=== PATIENT | female | born 1990 | race Caucasian/White ===

== ENCOUNTER 2017-01-04 08:49 | Emergency (ER) | payer OTHER ==
[2017-01-04 09:04] VITALS: BP 122/72
--- NOTE | 2017-01-04 09:30 | RAD ---
HISTORY: Right foot trauma COMPARISONS: None VIEWS: 3, Frontal, lateral, and oblique views of the right foot FINDINGS: BONE DENSITY: Normal. BONES: There is no displaced fracture. JOINTS: There is no arthropathy. ALIGNMENT: There is no dislocation. SOFT TISSUES: Unremarkable. OTHER FINDINGS: None. IMPRESSION: NO ACUTE OSSEOUS INJURY. IF SYMPTOMS PERSIST, RECOMMEND REPEAT IMAGING.
--- NOTE | 2017-01-04 09:31 | ED ---
Lower Extremity - HPI Summary HPI Summary: 26 yr old female with the complaint of right foot pain. The patient states that 4 days ago she dropped a back board on her right foot in [employer] training. The patient has pain in the right foot worse with walking, and standing. Pain is 5/10. She developed a bruise over the top of the foot over the weekend. She has no other complaints. - History of Current Complaint Chief Complaint: UCLowerExtremity Stated Complaint: RIGHT FOOT COMPLAINT Time Seen by Provider: 01/04/17 08:57 Hx Last Menstrual Period: 12/14/16 - Allergies/Home Medications Allergies/Adverse Reactions: Allergies Allergy/AdvReac Type Severity Reaction Status Date / Time No Known Allergies Allergy Verified 01/04/17 08:58 Home Medications: Home Medications Desogestrel & Ethinyl Estradio [[place] 0.15-30 mg-Mcg] 1 tab PO DAILY [History Confirmed 01/04/17] Ibuprofen TAB* [Advil TAB*] 400 mg PO Q6H PRN 01/04/17 [History Confirmed ] PMH/Surg Hx/FS Hx/Imm Hx Previously Healthy: Yes - Surgical History Surgery Procedure, Year, and Place: wisdom teeth Infectious Disease History: No Infectious Disease History: Denies: Traveled Outside the [place] in Last 30 Days - Social History Alcohol Use: None Substance Use Type: Reports: None Smoking Status (MU): Never Smoked Tobacco Review of Systems Constitutional: Negative Positive: Other - foot pain Positive: Bruising - right foot All Other Systems Reviewed And Are Negative: Yes Physical Exam Triage Information Reviewed: Yes Vital Signs On Initial Exam: Initial Vitals Temp Pulse Resp BP Pulse Ox 97.5 F 64 16 122/72 100 01/04/17 08:59 01/04/17 08:59 01/04/17 08:59 01/04/17 08:59 01/04/17 08:59 Vital Signs Reviewed: Yes Appearance: Positive: Well-Appearing Skin: Positive: Other - bruise over the top of the right foot at 3/4 mp joints Head/Face: Positive: Normal Head/Face Inspection Eyes: Positive: EOMI ENT: Positive: Normal ENT inspection Respiratory/Lung Sounds: Positive: Other - normal effort Cardiovascular: Positive: Other - intact DP/PT pulse right foot Musculoskeletal: Positive: Other - there is bruising over the right foot dorsum at the 3/4 MP joint area with some tenderness. Neurological: Positive: Normal, Sensory/Motor Intact, Alert, Oriented to Person Place, Time, CN Intact II-III Psychiatric: Positive: Normal Diagnostics - Vital Signs Vital Signs Temp Pulse Resp BP Pulse Ox 01/04/17 08:59 97.5 F 64 16 122/72 100 - Laboratory Lab Statement: Any lab studies that have been ordered have been reviewed, and results considered in the medical decision making process. - Radiology right foot Xray Interpretation: No Acute Changes Radiology Interpretation Completed By: Radiologist Lower Extremity Course/Dx - Course Course Of Treatment: 26 yr old with contusion/sprain right foot. Will DC home. Ortho referral. - Diagnoses Provider Diagnoses: Contusion of foot, right, Sprain of foot, right Discharge - Discharge Plan Condition: Good Disposition: HOME Patient Education Materials: Foot Contusion (ED), Foot Sprain (ED) Referrals: Ravinder Cardenas MD [Medical Doctor] - 2 Days Jeronimo Bazan MD [Primary Care Provider] -
== END 2017-01-04 10:04 | disposition home or self-care (01) ==
LOC: UCCORT 08:49
DX: S90.31XA Contusion of right foot, initial encounter (principal); S93.601A Unspecified sprain of right foot, initial encounter; W22.8XXA Striking against or struck by other objects, initial encounter; Y93.11 Activity, swimming; Y92.838 Other recreation area as the place of occurrence of the external cause; Y99.9 Unspecified external cause status
CPT/HCPCS: 99211; G0463